=== PATIENT | female | born 1995 | race Caucasian/White ===

== ENCOUNTER 2022-02-04 01:19 | Emergency (ER) | payer MEDICAID ==
[~2022-02-04] VITALS: Ht 157.5 cm; Wt 114.8 kg
== END 2022-02-04 02:03 | disposition home or self-care (01) ==
LOC: ER 01:19
DX: T49.4X1A Poisoning by keratolytics, keratoplastics, and other hair treatment drugs and preparations, accidental (unintentional), initial encounter (principal); L25.3 Unspecified contact dermatitis due to other chemical products
CPT/HCPCS: 99283